=== PATIENT | male | born 2000 | race Hispanic/Latino ===

== ENCOUNTER 2021-12-20 16:48 | Emergency (ER) | payer OTHER | END 2021-12-20 17:59 | disposition home or self-care (01) | LOC: ERS 16:48 | DX: S06.0XAA Concussion with loss of consciousness status unknown, initial encounter (principal); F17.200 Nicotine dependence, unspecified, uncomplicated; V43.62XA Car passenger injured in collision with other type car in traffic accident, initial encounter | CPT/HCPCS: 99283 ==